=== PATIENT | female | born 1985 | race American Indian/Alaskan Native ===

== ENCOUNTER 2017-04-20 08:52 | Emergency (ER) | payer BC ==
[2017-04-20 08:53] VITALS: BMI 31.7
[2017-04-20 08:58] VITALS: BP 127/84; PULSE 70; RESP 20; TEMP 98.5; O2SAT 97
--- NOTE | 2017-04-20 10:12 | C.PDOC ---
History Of Present Illness 31-year-old female, presents to the emergency department with complaints of pain and swelling to the fifth digit of left foot, after hitting it on a chair two weeks ago. Patient denies any numbness/weakness, fevers, or any other associated symptoms. No other complaints at this time. - HPI Time Seen by Provider: 04/20/17 09:05 Chief Complaint (Nursing): Trauma History Per: Patient History/Exam Limitations: no limitations Onset/Duration Of Symptoms: Days Injury Occurred (Timing): Days Ago: (2 weeks) Location Of Injury: Left: Foot (5th digit) Past Medical History Reviewed: Historical Data, Nursing Documentation, Vital Signs Vital Signs: Last Vital Signs Temp 98.5 F 04/20/17 08:57 Pulse 70 04/20/17 08:57 Resp 20 04/20/17 08:57 BP 127/84 04/20/17 08:57 Pulse Ox 97 04/20/17 10:44 - Medical History PMH: Asthma Family History: States: No Known Family Hx - Social History Hx Alcohol Use: No Hx Substance Use: No - Immunization History Hx Tetanus Toxoid Vaccination: Yes Hx Influenza Vaccination: No Hx Pneumococcal Vaccination: No Review Of Systems Constitutional: Negative for: Fever Gastrointestinal: Negative for: Nausea, Vomiting Musculoskeletal: Positive for: Foot Pain Neurological: Negative for: Weakness, Numbness Physical Exam - Physical Exam Appears: Non-toxic, No Acute Distress Skin: Warm, Dry, No Rash Neck: Normal ROM Respiratory: No Accessory Muscle Use Extremity: Normal ROM, Tenderness, No Pedal Edema, No Calf Tenderness, Capillary Refill (<2 seconds), No Deformity, Swelling, Other (Mild tenderness to palpation of 5th digit to left foot w/ mild swelling.) Pulses: Left Dorsalis Pedis: Normal, Right Dorsalis Pedis: Normal Neurological/Psych: Oriented x3, Normal Speech ED Course And Treatment O2 Sat by Pulse Oximetry: 97 (on RA) Pulse Ox Interpretation: Normal Progress Note: XR L foot ordered and reviewed. XR reveals fracture to 5th digit. Will bradley tape and discharge for outpatient f/u with ortho. Patient asked to return for any new or worsening symptoms. Disposition - Disposition Referrals: [facility]ry [facility] [Outside] Leora Mcmahon MD [Medical Doctor] - Disposition: HOME/ ROUTINE Disposition Time: 10:15 Condition: STABLE Additional Instructions: FOLLOW UP WITH PODIATRY WITHIN 1 WEEK USE MEDICATIONS DIRECTED RETURN TO ER IF SYMPTOMS WORSEN Prescriptions: Naproxen 375 mg PO BID PRN #20 tablet PRN Reason: pain Instructions: Toe Fracture (ED) Forms: [facility] (Tajik) Print Language: ICELANDIC - Clinical Impression Clinical Impression: Toe fracture, right - Scribe Statement The provider has reviewed the documentation as recorded by the Scribe (Anastasiya Quintana) All medical record entries made by the Scribe were at my direction and personally dictated by me. I have reviewed the chart and agree that the record accurately reflects my personal performance of the history, physical exam, medical decision making, and the department course for this patient. I have also personally directed, reviewed, and agree with the discharge instructions and disposition.
--- NOTE | 2017-04-20 10:16 | C.PDOC ---
- HPI Time Seen by Provider: 04/20/17 09:05 Chief Complaint (Nursing): Trauma Past Medical History Vital Signs: Last Vital Signs Temp 98.5 F 04/20/17 08:57 Pulse 70 04/20/17 08:57 Resp 20 04/20/17 08:57 BP 127/84 04/20/17 08:57 Pulse Ox 97 04/20/17 08:57 - Medical History PMH: Asthma Family History: States: Unknown Family Hx - Social History Hx Alcohol Use: No Hx Substance Use: No - Immunization History Hx Tetanus Toxoid Vaccination: Yes Hx Influenza Vaccination: No Hx Pneumococcal Vaccination: No ED Course And Treatment O2 Sat by Pulse Oximetry: 97 Disposition Counseled Patient/Family Regarding: Diagnosis, Need For Followup, Rx Given - Disposition Referrals: Leora Mcmahon MD [Medical Doctor] - Podiatry Clinic [Outside] Disposition: HOME/ ROUTINE Disposition Time: 10:15 Condition: STABLE Additional Instructions: FOLLOW UP WITH PODIATRY WITHIN 1 WEEK USE MEDICATIONS DIRECTED RETURN TO ER IF SYMPTOMS WORSEN Prescriptions: Naproxen 375 mg PO BID PRN #20 tablet PRN Reason: pain Instructions: Toe Fracture (ED) Forms: [facility] (Czech) Print Language: SWEDISH - POA Present On Arrival: None - Clinical Impression Clinical Impression: Toe fracture, right
--- NOTE | 2017-04-20 11:33 | RAD ---
PROCEDURE: Left 5th digit HISTORY: LEFT 5TH TOE PAIN R/O FX COMPARISON: None TECHNIQUE: Standard protocol for this study/examination. FINDINGS: No evidence of displaced fracture. Particular attention directed to the 5th digit. Soft tissue swelling identified. IMPRESSION: Soft tissue swelling without acute articular or osseous abnormality.
== END 2017-04-20 10:51 | disposition home or self-care (01) ==
LOC: C.ER 08:52
DX: S92.502A Displaced unspecified fracture of left lesser toe(s), initial encounter for closed fracture (principal); W22.03XA Walked into furniture, initial encounter